=== PATIENT | female | born 1975 | race Caucasian/White ===

== ENCOUNTER → 2017-01-01 | Outpatient (CLI) | payer MEDICAID | END | disposition disaster alternative care site (69) | LOC: GRAD 11:44 | DX: R10.9 Unspecified abdominal pain (principal); R31.9 Hematuria, unspecified; N13.2 Hydronephrosis with renal and ureteral calculous obstruction ==

== ENCOUNTER → 2017-01-02 | Outpatient (CLI) | payer MEDICAID | END | disposition disaster alternative care site (69) | LOC: LKCL 17:21 | DX: N20.0 Calculus of kidney (principal) ==